=== PATIENT | female | born 1995 | race African-American/Black ===

== ENCOUNTER 2017-03-13 17:08 | Emergency (ER) | payer OTHER ==
[2017-03-13 17:38] LABS: Bilirubin Negative (Negative); Blood, Urine Negative (Negative); Glucose, Urine (Dipstick) Negative (Negative); Leukocyte Large (Negative); Nitrite Negative (Negative); Protein, Urine (Dipstick) Negative (Neg-Trace); Urobilinogen 0.2 mg/dL (0.2-1.0)
[2017-03-13 17:39] LABS: Clarity Hazy (Clear)
[2017-03-13 17:46] LABS: Bacteria/HPF 1+ HPF (None Seen); Hyaline Casts/LPF 0-3 HYALINE CAST LPF (0-3 Hyaline); Pathc Cast-AUWi Flag 0.13 (0-2.49); RBC/HPF 0-3 HPF (0-3); WBC/HPF 21-50 HPF (0-3)
[2017-03-13 17:59] LABS: #Eosinphils 0.1 thou/uL (0.0-0.7); #Monocytes 0.6 thou/uL (0.11-0.59); #Neutrophils 3.4 thou/uL (1.40-6.50); %Basophils 0.4 % (0.0-1.0); %Eosinophils 1.6 % (0.0-10.0); %Monocytes 10.4 % (0.0-10.0); %Neutrophils 54.6 % (42.0-75.0); Hemoglobin 12.7 g/dL (12.0-16.0); Mean Corpuscular HGB CONC 31.7 g/dL (32.0-36.0); Mean Corpuscular Hemoglobin 27.4 pg (27.0-31.0); Mean Corpuscular Volume 86.4 fl (81.0-99.0); Mean Platelet Volume 8.2 fL (7.4-10.4); Platelet Count 234 thou/uL (130-400); RBC Distribution Width 13.7 % (11.5-14.5); Red Blood Cell (RBC) Count 4.62 mill/uL (4.20-5.40); White Blood Cell (WBC) Count 6.2 thou/uL (4.8-10.8)
[2017-03-13 18:08] LABS: Crystals/HPF None Seen HPF (Negative)
--- NOTE | 2017-03-13 19:38 | ULT ---
PELVIC ULTRASOUND 03/13/17 HISTORY: Vaginal bleeding in patient with positive test. Patient also complains of abdominal crampin g. FINDINGS: Multiple transabdominal and endovaginal sonographic images of the pelvis are obtained. The uterus has a normal sonographic appearance and measures 10.5 cm x 4.8 cm x 5 cm. There is a fluid collection seen within the endometrial canal with a pole and yolk sac visualized. Cardiac dopp ler does demonstrate heart tones with a heart rate of 141 beats per minute. The crown-rum p length measures 0.97 cm consistent with gestational age by ultrasound of 7 weeks. The ovaries are visualized bilaterally demonstrating a normal sonographic appearance. The right ovary measures 2.9 cm x 2.1 cm x 2.7 cm with the left ovary measuring 1.7 cm x 1.4 cm x 2.8 cm. Doppler ev aluation of each ovary with spectral analysis and color flow evaluation demonstrates venous and arter ial flow. Although flow is difficult to elicit in the right ovary, there is suggestion of arterial fl ow. The fallopian tubes are not visualized bilaterally. No free fluid is seen in the cul-de-sac. IMPRESSION: Single intrauterine gestation with heart tones documented. Gestational age by measurement of th e crown-rump length is 7 weeks. POS: [facility]
[2017-03-14 22:33] LABS: Chlamydia by PCR Not Detected (NotDetected); GC by PCR Not Detected (NotDetected)
== END 2017-03-13 20:25 | disposition home or self-care (01) ==
LOC: ERS 17:08
DX: O20.0 Threatened abortion (principal); O23.41 Unspecified infection of urinary tract in pregnancy, first trimester; O99.341 Other mental disorders complicating pregnancy, first trimester; F31.9 Bipolar disorder, unspecified; F20.9 Schizophrenia, unspecified; F90.9 Attention-deficit hyperactivity disorder, unspecified type; Z3A.01 Less than 8 weeks gestation of pregnancy; Z86.711 Personal history of pulmonary embolism
CPT/HCPCS: 36415; 76856; 81003; 81015; 84702; 85025; 86850; 86900; 86901; 87480; 87491; 87510; 87591; 87660

== ENCOUNTER 2017-04-24 17:56 | Emergency (ER) | payer OTHER ==
[2017-04-24 18:42] LABS: Pregnancy Test - Urine (BHCG) POSITIVE (Negative); Pregu Control Background? CLEAR/WHITE (CLR/WHITE); Pregu Control Bar Appear? YES (CONTROL BAR)
[2017-04-24 18:43] LABS: Bilirubin Small (Negative); Blood, Urine Negative (Negative); Clarity CLOUDY (Clear); Glucose, Urine (Dipstick) Negative (Negative); Leukocyte Moderate (Negative); Nitrite Negative (Negative); Protein, Urine (Dipstick) 30 mg/dL (Neg-Trace)
[2017-04-24 18:48] LABS: Pathc Cast-AUWi Flag 2.57 (0-2.49); Yeast-AUWi Flag 40.7 (0-25.0)
[2017-04-24 19:00] LABS: Hyaline Casts/LPF 0-3 HYALINE CAST LPF (0-3 Hyaline)
[2017-04-24 19:01] LABS: Bacteria/HPF 1+ HPF (None Seen); RBC/HPF 0-3 HPF (0-3)
[2017-04-24 19:32] LABS: #Basophils 0.1 thou/uL (0.0-0.2); #Eosinphils 0.1 thou/uL (0.0-0.7); #Lymphocytes 0.7 thou/uL (1.20-3.40); #Monocytes 0.4 thou/uL (0.11-0.59); #Neutrophils 5.7 thou/uL (1.40-6.50); %Basophils 1.4 % (0.0-1.0); %Eosinophils 0.7 % (0.0-10.0); %Lymphocytes 9.9 % (21.0-51.0); %Monocytes 6.1 % (0.0-10.0); %Neutrophils 81.9 % (42.0-75.0); Hemoglobin 12.8 g/dL (12.0-16.0); Mean Corpuscular HGB CONC 33.1 g/dL (32.0-36.0); Mean Corpuscular Hemoglobin 28.9 pg (27.0-31.0); Mean Corpuscular Volume 87.4 fl (81.0-99.0); Mean Platelet Volume 8.2 fL (7.4-10.4); Platelet Count 174 thou/uL (130-400); RBC Distribution Width 13.7 % (11.5-14.5); Red Blood Cell (RBC) Count 4.41 mill/uL (4.20-5.40); White Blood Cell (WBC) Count 6.9 thou/uL (4.8-10.8)
[2017-04-24 19:47] LABS: ALT (SGPT) 9 U/L (8-55); AST (SGOT) 13 U/L (5-34); Albumin 3.6 g/dL (3.5-5.0); Alkaline Phosphatase 53 U/L (40-150); Anion Gap 12 mmol/L (10-20); BUN (Urea Nitrogen) 7 mg/dL (7.0-18.7); Bilirubin, Total 0.4 mg/dL (0.2-1.2); Calc. Creatinine Clearance 0 mL/min (70-130); Carbon Dioxide 20 mmol/L (22-29); Chloride 106 mmol/L (98-107); Estimated GFR-MDRD Greater than 90; Globulin 3.3 g/dL (2.4-3.5); Glucose 94 mg/dL (70-105); Protein, Total 6.9 g/dL (6.0-8.3); Sodium 134 mmol/L (136-145)
[2017-04-24] MEDS ORDERED: Ondansetron PF 4 MG/2 ML Vial ONE (20:06)
[2017-04-24 21:35] LABS: Bilirubin Small (Negative); Blood, Urine Negative (Negative); Clarity CLOUDY (Clear); Glucose, Urine (Dipstick) Negative (Negative); Leukocyte Small (Negative); Nitrite Negative (Negative); Protein, Urine (Dipstick) Trace mg/dL (Neg-Trace); Specific Gravity, Urine 1.033 (1.002-1.036)
[2017-04-24 21:38] LABS: Bacteria/HPF 1+ HPF (None Seen); Hyaline Casts/LPF 7-10 HYALINE CAST LPF (0-3 Hyaline); RBC/HPF 0-3 HPF (0-3); Squamous Epithelial 21-50 HPF (0-3); Yeast-AUWi Flag 79.1 (0-25.0)
[2017-04-24] MEDS ORDERED: Metoclopramide HCl 10 MG/2 ML VIAL ONE ×2 (22:29→22:50)
== END 2017-04-24 23:17 | disposition home or self-care (01) ==
LOC: ERS 17:56
DX: O21.9 Vomiting of pregnancy, unspecified (principal); O99.89 Other specified diseases and conditions complicating pregnancy, childbirth and the puerperium; R19.7 Diarrhea, unspecified; O99.341 Other mental disorders complicating pregnancy, first trimester; F31.9 Bipolar disorder, unspecified; F20.9 Schizophrenia, unspecified; F90.9 Attention-deficit hyperactivity disorder, unspecified type; Z3A.13 13 weeks gestation of pregnancy
CPT/HCPCS: 36415; 80053; 81003; 81015; 81025; 85025; 87086; 87804; 96361; 96374; 96375; J2405; J2765

== ENCOUNTER 2017-06-04 16:04 | Outpatient (CLI) | payer OTHER | END 2017-06-04 16:05 | disposition home or self-care (01) | LOC: BICULT 16:04 | PROVIDERS: ATTEND Obstetrics & Gynecology | DX: M79.661 Pain in right lower leg (principal) ==

== ENCOUNTER 2017-06-21 21:49 | Day surgery (SDC) | payer OTHER ==
[2017-06-21 22:35] VITALS: BP 120/59; TEMP 98.5; BMI 56.9
--- NOTE | 2017-06-22 01:52 | ER ---
DATE OF ENCOUNTER: 06/21/2017 PRIMARY OB: Dr. Dari Goyal. CHIEF COMPLAINT: Abdominal pain. HISTORY OF PRESENT ILLNESS: The patient is a 22-year-old G2, P1 female with an intrauterine pregnanc y at 21 weeks' gestation. Patient reports 5 days ago, patient fell on her abdomen and has been havin g abdominal pains since then. She reports the pain is associated with activity such as getting out o f the car, getting out of bed, climbing, walking. She denies labor pains or uterine contractions. T he patient also reports she has been having a foul vaginal smell that she has not been able to get ri d of. The patient denies any recent intercourse or antibiotics use. She does have a history of pulm onary embolism and is supposed to be on Lovenox twice daily, but has not been taking it. The patient denies any recent illness, fever, headache. The patient reports that she was worried. PAST MEDICAL HISTORY: Pulmonary embolism in 2014. PAST SURGICAL HISTORY: Previous x1. ALLERGIES: No known drug allergies. SOCIAL HISTORY: Denies drug, alcohol, or tobacco use. OB LABS: Unavailable. CURRENT MEDICATIONS: vitamins and Lovenox, which she admits she has not been taking. REVIEW OF SYSTEMS: Per HPI. PHYSICAL EXAMINATION: VITAL SIGNS: Blood pressure 118/55, heart rate of 85, respiratory rate of 20, satting 100% on room a ir, temperature 98.4. GENERAL: She appears to be in no acute distress. She is alert, oriented, cooperative, and pleasant to interact with. HEAD: Normocephalic, atraumatic. LUNGS: Clear to auscultation bilaterally. HEART: Regular rate and rhythm. ABDOMEN: Tender with deviation of the uterus bilaterally consistent with musculoskeletal pains and l igamentous pains. EXTREMITIES: Nontender, nonedematous. GENITOURINARY: VP3 was collected. Otherwise, exam has been deferred. Heart tones have been dopplered in the 140s. Tocometer did not demonstrate any contractions. VP3 is pending. ASSESSMENT AND PLAN: The patient is a 22-year-old G2, P1 female with an intrauterine at 21 weeks, who is presenting with just complaints of abdominal pains, which are consistent with ligament or musculoskeletal pains of . The patient has no signs of labor. 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 She has been encouraged to keep her next appointment with Dr. Goyal coming up next week.
== END 2017-06-21 23:35 | disposition home or self-care (01) ==
LOC: L&D/OP 21:49
PROVIDERS: ATTEND Student in an Organized Health Care Education/Training Program
DX: O99.89 Other specified diseases and conditions complicating pregnancy, childbirth and the puerperium (principal); R10.9 Unspecified abdominal pain; Z3A.21 21 weeks gestation of pregnancy; Z86.711 Personal history of pulmonary embolism; Z79.899 Other long term (current) drug therapy; W19.XXXA Unspecified fall, initial encounter
CPT/HCPCS: 87480; 87510; 87660; 99282

== ENCOUNTER 2017-07-27 19:05 | Emergency (ER) | payer OTHER ==
[2017-07-27] MEDS ORDERED: Acetaminophen 500 MG TAB ONE (19:24)
--- NOTE | 2017-07-27 19:54 | RAD ---
LEFT FOOT THREE VIEWS: 07/27/17 HISTORY: 22-year-old female with history of left foot pain. Unable to bend great toe. FINDINGS/IMPRESSION: No fracture, dislocation, or other significant acute osseous abnormality. Stable from prior exam, 05/04. POS: [facility]
== END 2017-07-27 19:56 | disposition home or self-care (01) ==
LOC: ERS 19:05
DX: O99.89 Other specified diseases and conditions complicating pregnancy, childbirth and the puerperium (principal); M25.572 Pain in left ankle and joints of left foot; O99.340 Other mental disorders complicating pregnancy, unspecified trimester; F20.9 Schizophrenia, unspecified; F31.9 Bipolar disorder, unspecified; F90.9 Attention-deficit hyperactivity disorder, unspecified type; Z86.711 Personal history of pulmonary embolism

== ENCOUNTER 2017-08-20 08:59 | Day surgery (SDC) | payer OTHER ==
[2017-08-20 09:32] VITALS: BMI 56.5
[2017-08-20 10:23] LABS: #Eosinphils 0.2 thou/uL (0.0-0.7); #Lymphocytes 1.4 thou/uL (1.20-3.40); #Monocytes 0.5 thou/uL (0.11-0.59); #Neutrophils 4.5 thou/uL (1.40-6.50); %Basophils 0.3 % (0.0-1.0); %Eosinophils 2.8 % (0.0-10.0); %Lymphocytes 21.1 % (21.0-51.0); %Monocytes 7.7 % (0.0-10.0); %Neutrophils 68.1 % (42.0-75.0); Hemoglobin 11.6 g/dL (12.0-16.0); Mean Corpuscular HGB CONC 33.3 g/dL (32.0-36.0); Mean Corpuscular Hemoglobin 29.3 pg (27.0-31.0); Mean Platelet Volume 8.5 fL (7.4-10.4); Platelet Count 201 thou/uL (130-400); RBC Distribution Width 12.5 % (11.5-14.5); Red Blood Cell (RBC) Count 3.97 mill/uL (4.20-5.40); White Blood Cell (WBC) Count 6.6 thou/uL (4.8-10.8)
[2017-08-20 10:26] LABS: Bilirubin Negative (Negative); Blood, Urine Negative (Negative); Clarity CLEAR (Clear); Glucose, Urine (Dipstick) Negative (Negative); Leukocyte Trace (Negative); Nitrite Negative (Negative); Protein, Urine (Dipstick) Negative (Neg-Trace); Specific Gravity, Urine 1.021 (1.002-1.036); pH, Urine 6.5 (5.0-9.0)
[2017-08-20 10:29] LABS: Bacteria/HPF None Seen HPF (None Seen); RBC/HPF 0-3 HPF (0-3); WBC/HPF 0-3 HPF (0-3)
[2017-08-20 10:38] LABS: Pathc Cast-AUWi Flag 3.05 (0-2.49)
[2017-08-20 10:45] LABS: Hyaline Casts/LPF 0-3 HYALINE CAST LPF (0-3 Hyaline)
[2017-08-20 10:55] LABS: FFN Internal QC Analyzer PASS (PASS); FFN Internal QC Cassette PASS (PASS); Fetal Fibronectin Negative (Negative)
--- NOTE | 2017-08-20 11:22 | ULT ---
OB ULTRASOUND: HISTORY: Pelvic cramping. COMPARISON: None. TECHNIQUE: Sagittal and transverse imaging of the gravid uterus is performed. FINDINGS: Single intrauterine gestation, vertex presentation. Posterior placenta. Limited evaluation for prev ia. Cervix cannot be adequately assessed due to shadowing. heart tones with a rate of 147 to 153 b.p.m. Amniotic fluid index is 10.9 cm. BIOMETRY: BPD 7.3 cm, 29 weeks 2 days Head circumference 27.10 cm, 29 weeks 4 days Abdominal circumference 24.54 cm, 28 weeks 6 days Femur length 5.69 cm, 29 weeks 6 days Average age by sonography is 29 weeks 3 days. Estimated delivery date by sonography is 11/02/17. Estimated weight is 1361 gm. IMPRESSION: 1. Single intrauterine gestation with heart tones. 2. Average age by sonography is 29 weeks 3 days. Estimated weight is 1361 gm. POS: [facility]
--- NOTE | 2017-08-20 13:58 | ER ---
DATE OF SERVICE: 08/20/2017 PRESENTING COMPLAINT: Lower abdominal pain and contractions at 35 weeks' gestation. HISTORY OF PRESENT ILLNESS: Ms. Alberto is a 22-year-old 2, para 1, who presents complaining o f contractions. The patient's EDC was 10/30 at 29 and 6 weeks[address] The patient sees Dr. Goyal at [facility]. She is on Lovenox for a history of DVT. Outside of , she has had a previous . 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 PAST MEDICAL HISTORY: DVT outside of . PAST SURGICAL HISTORY: . ALLERGIES: None. MEDICATIONS: vitamins and Lovenox. SOCIAL HISTORY: Denies tobacco, alcohol, IV drug use. FAMILY HISTORY/REVIEW OF SYSTEMS: Noncontributory. PHYSICAL EXAMINATION: GENERAL: Black female. VITAL SIGNS: Temperature 98.5, pulse 74, respirations 20, blood pressure 109/52. HEENT: Within normal limits. LUNGS: Clear to auscultation bilaterally. HEART: Regular rhythm. BREASTS: No masses bilaterally. ABDOMEN: Soft and nontender. Fundal height 30 cm. FHTs 130s. PELVIC: Vulva without lesions. Vagina without discharge. Cervix closed, long, high. EXTREMITIES: Without clubbing, cyanosis, or edema. RADIOLOGY: Ultrasound reveals cephalic presentation, 4 cm cervical length, YENIFER of 10.9 and EFW of 13 61 grams consistent with gestational age. LABORATORY STUDIES: CBC, UA, and fibronectin were all negative and within normal limits. Elec tronic monitoring, prolonged monitoring was carried out. No evidence of labor was note d. Category 1 heart rate tracing was noted. IMPRESSION: Discomforts of at 29 weeks' gestation. PLAN: Discharge home, keep scheduled followup with Dr. Goyal. Continue Lovenox and ER precautions .
== END 2017-08-20 11:56 | disposition home or self-care (01) ==
LOC: L&D/OP 08:59
PROVIDERS: ATTEND Student in an Organized Health Care Education/Training Program
DX: O47.03 False labor before 37 completed weeks of gestation, third trimester (principal); Z3A.29 29 weeks gestation of pregnancy
CPT/HCPCS: 36415; 51701; 76815; 81001; 82731; 85025; 99283

== ENCOUNTER 2017-09-03 15:40 | Outpatient (CLI) | payer OTHER ==
--- NOTE | 2017-09-03 17:12 | ULT ---
SONOGRAPHIC BIOPHYSICAL PROFILE EXAM: History: distress. FINDINGS: Good tone, breathing, and gross movements were demonstrated. Amniotic fluid index = 16.3. IMPRESSION: Sonographic biophysical profile exam is 10/03. POS: [facility]
== END 2017-09-03 15:41 | disposition home or self-care (01) ==
LOC: ULT 15:40
PROVIDERS: ATTEND Nurse Practitioner
DX: O36.8130 Decreased fetal movements, third trimester, not applicable or unspecified (principal)
CPT/HCPCS: 76819

== ENCOUNTER 2017-09-17 11:55 | Day surgery (SDC) | payer OTHER ==
--- NOTE | 2017-09-17 13:31 | PDOC.LDHP ---
Labor and Delivery H&P Chief complaint: loss of fluid, other Current gestational age (weeks): 34 Allergies/Adverse Reactions: Allergies Allergy/AdvReac Type Severity Reaction Status Date / Time No Known Allergies Allergy Verified 09/17/17 12:40
[2017-09-17 13:43] LABS: Bilirubin Negative (Negative); Blood, Urine Negative (Negative); Clarity CLEAR (Clear); Glucose, Urine (Dipstick) Negative (Negative); Leukocyte Small (Negative); Nitrite Negative (Negative); Protein, Urine (Dipstick) Negative (Neg-Trace); pH, Urine 6.5 (5.0-9.0)
[2017-09-17 13:44] LABS: Bacteria/HPF None Seen HPF (None Seen); Hyaline Casts/LPF 4-6 HYALINE CAST LPF (0-3 Hyaline); Pathc Cast-AUWi Flag 1.16 (0-2.49); RBC/HPF 0-3 HPF (0-3); WBC/HPF 0-3 HPF (0-3)
[2017-09-17 13:50] LABS: Amnisure Test No Membranes Rupture (No Rupture)
[2017-09-17 13:51] LABS: Amnisure Internal Control QC ACCEPTABLE (ACCEPTABLE)
--- NOTE | 2017-09-17 15:37 | ULT ---
LIMITED OBSETRICAL ULTRASOUND: INDICATION: History of obesity and unreliable heart tones. COMPARISON: Prior exam dated 09/03/17. FINDINGS: There is a single live intrauterine gestation in vertex presentation. Cardiac activity is documented at 124 b.p.m. YENIFER is noted at 8.8 cm. There is 8 out of 8 biophysical profile for tone, feta l breathing, movement, and amniotic fluid level. IMPRESSION: Biophysical profile of 8 out of 8. POS: [facility]
--- NOTE | 2017-09-17 19:44 | PRG ---
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 Dari Goyal at [facility]. CHIEF COMPLAINT: Pelvic pressure, urinary hesitancy, leakage of fluid and vaginal odor. HISTORY OF PRESENT ILLNESS: The patient is a 22-year-old female with an intrauterine at 33 weeks and 6 days with a past medical history significant for pulmonary embolism on anticoagulation, but is noncompliant. The patient reports that she has had 1 day history of pelvic pressure, urinary urgency. She called the doctor's office who instructed her to come here for evaluation. The patient denies any problems with urination until today. She reports that she has had bacterial vaginosis in this now twice with not responding to treatment. She reports that she has had a vaginal odor for much of her . Patient reports that she is having pelvic pressure/ pelvic pain that she notices mainly when she tries to lift her legs and to move to get out of bed and other activities. The patient denies fever or illness. She denies headache, chest pain, shortness of breath. She denies any vomiting. She reports that she has been having loose stools now for nearly [address] Goyal has been unaware of. The patient admits that she does not eat well at home, which I understood as less than nutritious foods. The patient denies any new rashes. She denies vaginal bleeding. PAST MEDICAL HISTORY: 1. She has a history of pulmonary embolism with unknown etiology from the summer of 2015. 2. Bipolar disorder. 3. History of chlamydia. ALLERGIES: No known drug allergies. PAST SURGICAL HISTORY: She has had 1 prior . ALLERGIES: No known drug allergies. MEDICATIONS: vitamins, Lovenox 40 mg twice a day. SOCIAL HISTORY: Denies drug, alcohol, and tobacco use. OBSTETRICS LABS: Blood type is B positive, antibody screen is negative. She is rubella immune. RPR is nonreactive. Hepatitis B surface antigen is nonreactive. REVIEW OF SYSTEMS: Per HPI. PHYSICAL EXAMINATION: VITAL SIGNS: Blood pressure 120/54, heart rate of 98, respiratory rate 20, satting 100% on room air, temperature 98.5. GENERAL: She appears to be in no acute distress. She is alert and oriented, cooperative and pleasant to interact with. HEENT: Normocephalic, atraumatic. LUNGS: Clear to auscultation bilaterally. HEART: Regular rate and rhythm. ABDOMEN: Soft and gravid and obese. heart tracing performed and was difficulty tracing appeared to have baseline in the 130s though could not get a consistent tracing. BPP was performed and found to be 8/8. AmniSure was collected TETRYL BLENDER OPERATOR-3 was collected and a cath UA was collected. FINDINGS: UA was negative for protein, for ketones, for nitrites, negative for white blood cells, negative for bacteria. She had small leukocyte esterase, but 4-6 squamous cells. AmniSure test was negative for rupture of membranes and TETRYL BLENDER OPERATOR-3 was positive for bacterial vaginosis or Gardnerella negative for Trichomonas and yeast. ASSESSMENT AND PLAN: The patient is a 22-year-old female with an intrauterine at 33 weeks and 6 days who has pelvic pains consistent with round ligament pain. She does not have a urinary tract infection; however , she does have bacterial vaginosis once again. The patient has been treated twice before with recurrence. I have given the patient a prescription of metronidazole 500 mg to be taken 3 times a day for the next week. Following her prescription, she has been given instructions to take an [id number] probiotic designed specifically for reintroducing healthy vaginal chantelle, which she has agreed to take. She has been given the name of the medication or of the probiotic and it is showed in the picture the bottle and told where she can pick it up at [facility]. The patient is being discharged to home when the patient noted that her heart tones were in the 120s and that her baby is normally in the 150s. We attempted to explain to her that the baby looks reassuring, although her heart rate baseline is different than what she has seen in the past. We have a reassuring BPP of 8/8 and heart tones are within a normal range. The patient has an appointment for followup with Dr. Goyal on Sunday. After leaving the room, the patient had an exchange with Denia, her nurse. Denia contacted myself and reported the patient is using profanity and refusing to believe her baby is okay. I contacted Dr. Goyal via text to let her know that she needs to come and speak with her patient to alleviate any concerns that the patient may have. I did return back to the room to try to understand what the patient' s concerns are. The patient again expressed a concern that the heart tones are in the 120s and that her baby is normal in the 150s and that there is something wrong. I attempted to explain to her why I believe that the baby is healthy, that there was no acute problems at this time with the findings of 10/03 BPP. Pt stated that the bpp was done because there were problems with the baby. I stated that the bpp was not ordered by myself because I was worried about the baby and reiterated that we were having trouble monitoring the baby. The patient again expressed distressed and began using profanity toward myself. I did share with her that I have contacted Dr. Goyal who can maybe better explain things and she said she does not trust Dr. Goyal either because "Dr. Goyal lies to me." The patient asked why we did BPP, I reiterated again that we did a BPP because we had difficulty tracing the baby on the monitor. She asked why they had difficulty tracing the baby on the monitor and I explained to her that she was a little overweight and had difficulty tracing the baby and so that is why we did a BPP to better monitor. She became more irate at that point using more profanity and worse profanity. I shared with her at this it was time for her to go. we have taken care of her and her baby and that the nursing staff nor I deserve to be treated with profanity and with anger the way she is doing so. I have explained to the patient that we have done nothing to mistreat her, but we have tried to take care of her and to explain to her what is happening. The patient refused to accept that and continued to use expletives. At that point, I told Denia that we need to contact security and have the patient escorted out of the hospital. The patient then at that point said she will go and I left the room. MONA
== END 2017-09-17 15:40 | disposition home or self-care (01) ==
LOC: L&D/OP 11:55
PROVIDERS: ATTEND Student in an Organized Health Care Education/Training Program
DX: O23.593 Infection of other part of genital tract in pregnancy, third trimester (principal); N76.0 Acute vaginitis; B96.89 Other specified bacterial agents as the cause of diseases classified elsewhere; O99.89 Other specified diseases and conditions complicating pregnancy, childbirth and the puerperium; R10.2 Pelvic and perineal pain; Z3A.33 33 weeks gestation of pregnancy
CPT/HCPCS: 36415; 51701; 76819; 81001; 84112; 87480; 87510; 87660; 99283

== ENCOUNTER 2017-10-17 10:18 | Day surgery (SDC) | payer OTHER ==
[2017-10-17 11:10] VITALS: BMI 57.5
--- NOTE | 2017-10-17 11:14 | PDOC.LDHP ---
Labor and Delivery H&P Chief complaint: decreased movement HPI: 22 y/o at 38w1d, patient of Dr. Goyal at , presents with decreased FM since last night. Has had some constant left sided abdominal cramping today only after she urinates. Denies VB, LOF, ctx, or other concerns. ROS neg for HEENT, cv, pulm, gi, gu, neuro, psych, skin, musculoskeletal, or constitutional symptoms other than mentioned above. OB History Details: 1 prior term LTCS for distress. Past Medical History: Hx of PE Previous surgical history: low tranverse CS Allergies/Adverse Reactions: Allergies Allergy/AdvReac Type Severity Reaction Status Date / Time No Known Allergies Allergy Verified 09/17/17 12:40 Social history: none - Physical Exam Vital signs reviewed and normal: yes General: NAD, resting Lungs: nonlabored breathing Abdomen: gravid Extremeties: no edema FHT: category 1 (140s, mod variability, + accels, no decels) [place] contractions every: none - Vaginal Exam cm dilated: 0 Effacement: 0% Station: -3 - OB Labs Blood type: B RH: positive - Assessment 22 y/o at 38w1d with reactive NST and no e/o active labor. - Plan -: D/c home with precautions. Advised to keep all appointments and return for scheduled c/s next Sunday.
== END 2017-10-17 11:20 | disposition home or self-care (01) ==
LOC: L&D/OP 10:18
PROVIDERS: ATTEND Obstetrics & Gynecology
DX: O36.8130 Decreased fetal movements, third trimester, not applicable or unspecified (principal); Z3A.38 38 weeks gestation of pregnancy
CPT/HCPCS: 99283

== ENCOUNTER 2017-10-19 11:36 | Outpatient (CLI) | payer OTHER | END 2017-10-19 11:37 | disposition home or self-care (01) | LOC: BICULT 11:36 | PROVIDERS: ATTEND Nurse Practitioner | DX: O36.8130 Decreased fetal movements, third trimester, not applicable or unspecified (principal); N32.0 Bladder-neck obstruction | CPT/HCPCS: 76819 ==

== ENCOUNTER → 2017-10-25 14:00 | Inpatient (IN) | payer MEDICAID, OTHER ==
[2017-10-23 05:44] VITALS: BMI 55.5
[2017-10-23 06:18] LABS: Hemoglobin 11.3 g/dL (12.0-16.0); Mean Corpuscular HGB CONC 33.6 g/dL (32.0-36.0); Mean Corpuscular Hemoglobin 28.5 pg (27.0-31.0); Mean Corpuscular Volume 84.8 fL (78.0-98.0); Mean Platelet Volume 8.5 fL (7.4-10.4); Platelet Count 212 thou/uL (130-400); RBC Distribution Width 12.8 % (11.5-14.5); Red Blood Cell (RBC) Count 3.96 mill/uL (4.20-5.40)
[2017-10-23 06:50] LABS: Syphilis Antibody Nonreactive (Nonreactive); Syphilis Antibody Index 0.05 S/CO (<1.00 Non-Reactive)
[2017-10-23 06:51] LABS: Hep B Surf Ag Non-Reactive S/CO (NonReactive)
--- NOTE | 2017-10-23 07:32 | PDOC.LDHP ---
Labor and Delivery H&P Chief complaint: scheduled section HPI: 22yo at 39w0d by LMP for RCS. No complaints, has not taken lovenox in last 2 weeks Current gestational age (weeks): 39 Due date: 10/30/17 Dating criteria: last menstrual period Grav: 2 Para: 1 Current complications: none Abnormal US findings: No (dilated bladder on sono 10/19, resolved on BS sono today) Past Medical History: h/o PE after 2014, neg thrombophilia w/u, supposed to be on lifelong anticoagulation Current medications: pre-lety vitamins, other (lovenox 60 bid) Previous surgical history: low tranverse CS Allergies/Adverse Reactions: Allergies Allergy/AdvReac Type Severity Reaction Status Date / Time No Known Allergies Allergy Verified 09/17/17 12:40 Social history: none - Physical Exam Vital signs reviewed and normal: yes General: NAD Heart: RRR Lungs: CTAB Abdomen: gravid Extremeties: no edema FHT: category 1 [place] contractions every: 5min - OB Labs RH: positive Antibody Screen: negative HIV: negative RPR: negative HEPSAg: negative 1 hour GCT: negative GBS: negative Urine drug screen: negative Rubella: immune - Assessment L&D Assessment: scheduled repeat section - Plan Plan: admit to L&D, to OR for section, informed consent obtained, anesthesia consult for pain management
[2017-10-23 08:45] LABS: Actual Bicarbonate (HCO3a) 24.9 mEq/L (22-28); Base Excess (BEa) -3.6 mEq/L (-2.0 to +3.0)
[2017-10-23] MEDS: Lactated Ringer's 1,000 ML IV SCH ×2 (09:20→14:01)
--- NOTE | 2017-10-23 13:07 | PDOC.OPDEL ---
OB Operative/Delivery Note Delivery Dr/Surgeon: Jay Jay Assist: Barrera PGY2 Pre-Delivery Diagnosis: scheduled section Procedure/Post Delivery Dx: repeat low transverse CS Weeks gestation: 39 Anesthesia: other (GETA) - Findings A Sex: female - Additional Findings/Plan Placenta delivered: spontaneous findings: low transverse hysterotomy without extension, normal uterus, normal tubes, normal ovaries Estimated blood loss: normal qbl pending Compilations/Other Findings: thick chronic meconium staining, placenta sent for path. Post delivery plan: routine recovery
--- NOTE | 2017-10-23 14:13 | OP ---
DATE OF OPERATION: 10/23/2017 PREOPERATIVE DIAGNOSES: 1. Intrauterine at 39 weeks 0 days. 2. Prior , declines trial of labor. 3. History of pulmonary embolism. 4. Morbid obesity. POSTOPERATIVE DIAGNOSES: 1. Intrauterine at 39 weeks 0 days. 2. Prior . 3. Declines trial of labor. 4. History of pulmonary embolism, morbid obesity. PROCEDURE: Repeat low transverse section via Pfannenstiel skin incision. ANESTHESIA: General endotracheal. ATTENDING SURGEON: Dari Goyal M.D. PRINCIPAL LIBRARIAN: Dr. Rust, PGY-2. ESTIMATED BLOOD LOSS: Normal. Quantitative blood loss is pending. COMPLICATIONS: None. DRAINS: Marte catheter. FINDINGS: Female infant, cephalic presentation, thick meconium, chronically stain appearing fluid an d placental membranes as well as uterine cavity. Apgars and weight are currently pending, pH was 7.2 3, pCO2 60.5, base excess negative 3.6. Hysterotomy without extension. Normal uterus, ovaries and t ubes bilaterally. PATHOLOGY: Placenta. OPERATIVE TECHNIQUE: The patient was taken to the operating room where spinal anesthesia was unsucce ssful. Therefore, general anesthesia was administered. The patient was prepped and draped in a ster ile fashion. Prior to administering general anesthesia once the patient was prepped and draped the a nesthetic was administered and skin incision was made with a knife and carried down to the underlying subcutaneous tissue with the knife. The fascia was nicked in the midline with the knife and carried laterally with the Nix scissors. The superior aspect of the fascia was tented with 2 Kochers and d issected off the rectus with the Nix scissors. There was omentum adherent to the rectus muscles and the anterior abdominal wall that was taken down sharply and hemostasis was achieved with the Bovie. The inferior aspect of the fascia was tented with 2 Kochers and dissected off the rectus down to the pubic symphysis. The peritoneum had previously been entered into and was manually retracted at this time, the Royer O retractor was placed and the vesicouterine peritoneum was incised with the Morgan baliza and the bladder flap was taken down below the level of the hysterotomy. The lower uterine segm ent was very thin and hysterotomy was made with a single pass of the knife and the meconium fluid pre sented. The infant's head was brought to the hysterotomy and delivered with fundal pressure. The in ben's cord was clamped and handed to awaiting emely team. Cord gas and cord blood was obtained . The placenta was allowed to spontaneously deliver. The uterus was exteriorized, cleared of all cl ots and debris. The uterus was noted to be atonic. The hysterotomy was clamped off with ring forcep s and Pitocin was infusing. Methergine was called for. The uterus was placed back into the abdomen and again lapped out and the hysterotomy was repaired with a #1 Monocryl in a running locking fashion . Methergine was given tone was improving. Bleeding was not excessive. A second imbricating layer was placed for added strength and since the patient had a very thin lower uterine segment. Hemostasi s was achieved. Irrigation of the pelvis was performed and again hysterotomy was noted to be hemosta tic. The Royer O retractor was removed out of the abdomen. The rectus muscles were examined and no cristiana to be hemostatic. The peritoneum was then reapproximated with a 2-0 Vicryl in a running fashion. The fascia was reapproximated with a #1 PDS x2 sutures with excellent reapproximation. The subcuta neous tissue was irrigated and cauterized of any bleeders and reapproximated with 2 layers of 2-0 janina in gut in a running fashion. The skin was closed with 4-0 Monocryl in a subcuticular fashion. Gallaway sampson was applied as well as a pressure dressing. The patient tolerated the procedure well. Sponge a nd needle counts were correct x2. The patient was taken to recovery in stable condition. The patien t received Ancef 3 grams prior to the procedure.
[2017-10-24] MEDS: Ferrous Sulfate 325 MG TAB PO SCH ×3 (01:44→21:30)
[2017-10-24] MEDS: Lactated Ringer's 1,000 ML IV SCH ×3 (01:44→14:00)
[2017-10-24 06:30] LABS: Hemoglobin 9.8 g/dL (12.0-16.0); Mean Corpuscular HGB CONC 33.5 g/dL (32.0-36.0); Mean Corpuscular Hemoglobin 28.4 pg (27.0-31.0); Mean Corpuscular Volume 84.7 fL (78.0-98.0); Mean Platelet Volume 8.8 fL (7.4-10.4); Platelet Count 172 thou/uL (130-400); RBC Distribution Width 12.6 % (11.5-14.5); Red Blood Cell (RBC) Count 3.44 mill/uL (4.20-5.40); White Blood Cell (WBC) Count 13.9 thou/uL (4.8-10.8)
[2017-10-24] MEDS: Prenatal Vitamin 1 TAB PO SCH (09:11)
[2017-10-24] MEDS: Enoxaparin Sodium 60 MG/0.6 ML SYRINGE SC SCH ×2 (09:12→21:30)
--- NOTE | 2017-10-24 10:08 | PDOC.PP ---
Post Progress Note Post Day #: 1 PO intake tolerated: yes Flatus: yes Ambulation: yes Vital Signs (12 hours) Temp Pulse Resp BP 10/24/17 08:00 98.7 F 60 20 10/24/17 07:51 98.7 F 60 20 120/69 10/24/17 04:00 97.5 F L 68 18 127/73 10/24/17 00:00 98.8 F 65 20 121/62 Weight Weight 275 lb - Physical Examination General: NAD Cardiovascular: RRR Respiratory: non-labored breathing Abdominal: no distention, appropriately TTP Fundus firm & at: umb Skin: CS incision dry & intact Neurological: no gross focal deficits Psychiatric: normal affect Result Diagrams: 10/24/17 06:10 Additional Labs: Post Labs Blood Type B POSITIVE 10/23/17 06:06 Hep Bs Antigen Non-Reactive S/CO (NonReactive) 10/23/17 06:06 (1) Term Code(s): Z34.80 - ENCOUNTER FOR SUPRVSN OF NORMAL , UNSP TRIMESTER Status: Acute (2) History of pulmonary artery thrombosis Code(s): Z86.711 - PERSONAL HISTORY OF PULMONARY EMBOLISM Status: Acute - Assessment/Plan POD1 s/p RCS at 39w VSSAF Hgb 11.3-->9.8, appropriate for surgical blood loss, mild anemia, no s/sx, will cont PNV on DC Hx PE- restart ppx lovenox 60 bid due to morbid obesity Routine postop advances Rh pos RImm Cont Postop care.
[2017-10-24] MEDS: Ibuprofen 800 MG TAB PO SCH (21:30)
[2017-10-24] MEDS: HYDROcodone/Acetaminophen 5/325 mg Tablet PO PRN (21:34)
[2017-10-25] MEDS: Lactated Ringer's 1,000 ML IV SCH ×2 (03:06→06:20)
[2017-10-25] MEDS: HYDROcodone/Acetaminophen 5/325 mg Tablet PO PRN ×2 (06:23→11:10)
[2017-10-25] MEDS: Ibuprofen 800 MG TAB PO SCH ×2 (06:24→13:51)
[2017-10-25 07:35] VITALS: BP 125/81; TEMP 98.2
[2017-10-25] MEDS: Prenatal Vitamin 1 TAB PO SCH (08:41)
[2017-10-25] MEDS: Enoxaparin Sodium 60 MG/0.6 ML SYRINGE SC SCH (08:41)
[2017-10-25] MEDS: Ferrous Sulfate 325 MG TAB PO SCH (08:41)
--- NOTE | 2017-10-25 10:55 | PDOC.PP ---
Post Progress Note Vital Signs (12 hours) Temp Pulse Resp BP 10/25/17 08:00 98.2 F 87 20 10/25/17 07:34 98.2 F 87 20 125/81 10/25/17 04:30 98.7 F 86 20 120/86 10/25/17 00:00 98.4 F 79 20 119/49 L Weight Weight 275 lb Result Diagrams: 10/24/17 06:10 Additional Labs: Post Labs Blood Type B POSITIVE 10/23/17 06:06 Hep Bs Antigen Non-Reactive S/CO (NonReactive) 10/23/17 06:06 (1) Term Code(s): Z34.80 - ENCOUNTER FOR SUPRVSN OF NORMAL , UNSP TRIMESTER Status: Acute (2) History of pulmonary artery thrombosis Code(s): Z86.711 - PERSONAL HISTORY OF PULMONARY EMBOLISM Status: Acute
[~2017-10-25 14:00] MED LIST: Acetaminophen 325 MG TAB PO PRN; Acetaminophen 500 MG TAB PO SCH; Adacel (T-DAP) 0.5 ML VIAL IM ONE; Bicitra 30 ML UDCUP PO SCH; Bisacodyl 10 MG SUPP PR PRN; Bupivacaine 0.75% W/DEXTROSE 8.25% 2 ML AMP ONE; CEFAZOLIN/Water 2 GM/20 ML SYRINGE SLOW IVP SCH; Communication Order-Pharmacy FS SCH; Dexamethasone 4 mg/ml Vial ONE; Fentanyl 100 MCG/2 ML VIAL ONE; Gentamicin Sulfate 125 MG in Sodium Chloride 0.9% 100 ML IVPB SCH; Gentamicin Sulfate 80 MG in Premix Bag 1 BAG IVPB SCH; HYDROcodone/Acetaminophen 5/325 mg Tablet PO PRN; HYDROmorphone 2 MG/ML VIAL SLOW IVP PRN; Ibuprofen 800 MG TAB PO PRN; Ibuprofen 800 MG TAB PO SCH; Ketorolac Tromethamine 30 MG/ML VIAL IVP SCH; Ketorolac Tromethamine 30 MG/ML VIAL ONE; LR 500 ML/Oxytocin 10 units 500 ML IVPB SCH; Lidocaine 1% PF 5 ML VIAL ONE; Lidocaine 2% PF Inj 2 ML VIAL ONE; Meperidine HCl/PF 25 MG/ML VIAL SLOW IVP PRN; Methylergonovine 0.2 MG/ML VIAL ONE; Morphine PF 1 MG/ML SYR ONE; Naloxone HCl 0.4 mg/ml Vial IV PRN; Ondansetron HCl/PF 4 MG/2 ML Vial IVP PRN; Ondansetron HCl/PF 4 MG/2 ML Vial ONE; Oxytocin 10 UNITS/ML VIAL ONE; PROPOFOL 20 ML ONE; Promethazine HCl 25 MG/ML VIAL IM PRN; Succinylcholine Chloride 20 MG/ML 10 ml SYRINGE FS ONE; Zolpidem Tartrate 5 MG TAB PO PRN; diphenhydrAMINE 25 MG CAP PO PRN; diphenhydrAMINE 50 MG/ML VIAL IM PRN; diphenhydrAMINE 50 MG/ML VIAL IVP PRN; fentaNYL Citrate/PF 2,000 MCG in Sodium Chloride 0.9% 60 ML IV PRN
== END | disposition home or self-care (01) | DRG 766 ==
LOC: EDSTATUS 02-07 13:36 → L&D 10-23 05:33 → 3SW 10-23 13:20
PROVIDERS: ADMIT Student in an Organized Health Care Education/Training Program; ATTEND Student in an Organized Health Care Education/Training Program
PROC: 10D00Z1 Extraction of Products of Conception, Low, Open Approach (ICD-10-PCS; principal; 2017-10-23)
DX: O34.211 Maternal care for low transverse scar from previous cesarean delivery (principal); Z37.0 Single live birth; Z3A.39 39 weeks gestation of pregnancy; Z86.711 Personal history of pulmonary embolism
CPT/HCPCS: 36415; 51702; 82805; 85027; 86780; 86850; 86900; 86901; 87340; 88307; J1100; J1580; J1650; J1885; J2001; J2210; J2274; J2405; J2590; J2704; J3010; J3490; J7050

== ENCOUNTER 2017-12-10 20:31 | Emergency (ER) | payer OTHER ==
[2017-12-10 21:14] LABS: #Basophils 0.1 thou/uL (0.0-0.2); #Eosinphils 0.2 thou/uL (0.0-0.7); #Lymphocytes 2.1 thou/uL (1.20-3.40); #Monocytes 0.5 thou/uL (0.11-0.59); #Neutrophils 4.4 thou/uL (1.40-6.50); %Basophils 1.1 % (0.0-1.0); %Eosinophils 2.5 % (0.0-10.0); %Lymphocytes 28.8 % (21.0-51.0); %Neutrophils 60.7 % (42.0-75.0); Hemoglobin 11.2 g/dL (12.0-16.0); Mean Corpuscular HGB CONC 31.7 g/dL (32.0-36.0); Mean Corpuscular Hemoglobin 26.9 pg (27.0-31.0); Mean Corpuscular Volume 84.8 fL (78.0-98.0); Mean Platelet Volume 8.9 fL (7.4-10.4); Platelet Count 258 thou/uL (130-400); RBC Distribution Width 12.8 % (11.5-14.5); Red Blood Cell (RBC) Count 4.18 mill/uL (4.20-5.40); White Blood Cell (WBC) Count 7.2 thou/uL (4.8-10.8)
[2017-12-10 21:34] LABS: ALT (SGPT) 12 U/L (8-55); AST (SGOT) 16 U/L (5-34); Albumin 3.6 g/dL (3.5-5.0); Alkaline Phosphatase 62 U/L (40-150); Anion Gap 13 mmol/L (10-20); BUN (Urea Nitrogen) 10 mg/dL (7.0-18.7); Bilirubin, Total 0.3 mg/dL (0.2-1.2); Calc. Creatinine Clearance 0 mL/min (70-130); Calcium 8.6 mg/dL (7.8-10.44); Carbon Dioxide 21 mmol/L (22-29); Chloride 108 mmol/L (98-107); Estimated GFR-MDRD Greater than 90; Globulin 2.9 g/dL (2.4-3.5); Glucose 101 mg/dL (70-105); Lipase 25 U/L (8-78); Protein, Total 6.5 g/dL (6.0-8.3); Sodium 138 mmol/L (136-145)
--- NOTE | 2017-12-10 22:00 | ULT ---
SONOGRAM RIGHT UPPER QUADRANT: HISTORY: Right upper quadrant pain. FINDINGS: Multiple shadowing stones are present within the dependent portion of the gallbladder lumen. There i s no gallbladder wall thickening or pericholecystic fluid. The common duct is 0.3 cm. The liver is unremarkable, without focal mass or intrahepatic biliary dilatation. No free fluid. IMPRESSION: 1. Cholelithiasis. 2. No evidence of acute biliary obstruction. POS: [facility]
== END 2017-12-10 22:03 | disposition home or self-care (01) ==
LOC: ERS 20:31
DX: K80.20 Calculus of gallbladder without cholecystitis without obstruction (principal); Z86.711 Personal history of pulmonary embolism; F31.9 Bipolar disorder, unspecified; F20.9 Schizophrenia, unspecified; F90.9 Attention-deficit hyperactivity disorder, unspecified type
CPT/HCPCS: 36415; 76705; 80053; 83690; 85025

== ENCOUNTER 2018-06-25 19:57 | Emergency (ER) | payer OTHER | END 2018-06-25 20:25 | disposition left against medical advice (07) | LOC: ERS 19:57 | DX: Z53.21 Procedure and treatment not carried out due to patient leaving prior to being seen by health care provider (principal) ==

== ENCOUNTER 2018-11-21 23:38 | Emergency (ER) | payer OTHER ==
[2018-11-22 00:32] LABS: #Basophils 0.1 thou/uL (0.0-0.2); #Eosinphils 0.1 thou/uL (0.0-0.7); #Lymphocytes 3.3 thou/uL (1.20-3.40); #Monocytes 0.7 thou/uL (0.11-0.59); #Neutrophils 5.7 thou/uL (1.40-6.50); %Basophils 0.5 % (0.0-1.0); %Eosinophils 1.3 % (0.0-10.0); %Lymphocytes 33.6 % (21.0-51.0); %Monocytes 6.8 % (0.0-10.0); %Neutrophils 57.8 % (42.0-75.0); Hemoglobin 11.5 g/dL (12.0-16.0); Mean Corpuscular HGB CONC 32.2 g/dL (32.0-36.0); Mean Corpuscular Hemoglobin 26.1 pg (27.0-31.0); Mean Platelet Volume 8.4 fL (7.4-10.4); Platelet Count 295 thou/uL (130-400); RBC Distribution Width 13.6 % (11.5-14.5); Red Blood Cell (RBC) Count 4.42 mill/uL (4.20-5.40); White Blood Cell (WBC) Count 9.8 thou/uL (4.8-10.8)
[2018-11-22 00:38] LABS: BHCG - Serum Negative (NEGATIVE); Pregs Control Background? CLEAR/WHITE (CLR/WHITE); Pregs Control Bar Appear? YES (CONTROL BAR)
[2018-11-22 00:53] LABS: ALT (SGPT) 12 U/L (8-55); AST (SGOT) 14 U/L (5-34); Alkaline Phosphatase 64 U/L (40-110); Anion Gap 11 mmol/L (10-20); BUN (Urea Nitrogen) 12 mg/dL (7.0-18.7); Bilirubin, Total 0.2 mg/dL (0.2-1.2); Calc. Creatinine Clearance 0 mL/min (70-130); Calcium 9.4 mg/dL (7.8-10.44); Carbon Dioxide 23 mmol/L (22-29); Chloride 106 mmol/L (98-107); Estimated GFR-MDRD Greater than 90; Globulin 3.6 g/dL (2.4-3.5); Glucose 93 mg/dL (70-105); Lipase 35 U/L (8-78); Protein, Total 7.6 g/dL (6.0-8.3); Sodium 136 mmol/L (136-145)
[2018-11-22] MEDS ORDERED: Ketorolac Tromethamine 60 MG/2 ML VIAL ONE (00:55)
--- NOTE | 2018-11-22 06:28 | RAD ---
CHEST 1 VIEW: Date: 11/21/18 HISTORY: Chest pain x4 days. COMPARISON: 06/30/14. FINDINGS: Normal cardiac silhouette. Pulmonary vessels and hilum are normal. Costophrenic angles are clear. Snow g volumes are diminished, likely due to a poor inspiratory effort. No masses or consolidation. No pne umothorax or osseous abnormalities. IMPRESSION: 1. Diminished lung volumes, likely due to poor inspiratory effort. 2. No acute cardiopulmonary process. POS: ALEAH
== END 2018-11-22 01:41 | disposition home or self-care (01) ==
LOC: ERS 23:38
DX: R07.9 Chest pain, unspecified (principal); E66.9 Obesity, unspecified
CPT/HCPCS: 36415; 71045; 80053; 83690; 84484; 84703; 85025; 93005; 96372; J1885

== ENCOUNTER 2019-01-07 16:47 | Emergency (ER) | payer OTHER ==
[~2019-01-07 16:47] MED LIST changes: -Acetaminophen 325 MG TAB PO PRN; -Acetaminophen 500 MG TAB PO SCH; -Adacel (T-DAP) 0.5 ML VIAL IM ONE; -Bicitra 30 ML UDCUP PO SCH; -Bisacodyl 10 MG SUPP PR PRN; -Bupivacaine 0.75% W/DEXTROSE 8.25% 2 ML AMP ONE; -CEFAZOLIN/Water 2 GM/20 ML SYRINGE SLOW IVP SCH; -Communication Order-Pharmacy FS SCH; -Dexamethasone 4 mg/ml Vial ONE; -Fentanyl 100 MCG/2 ML VIAL ONE; -Gentamicin Sulfate 125 MG in Sodium Chloride 0.9% 100 ML IVPB SCH; -Gentamicin Sulfate 80 MG in Premix Bag 1 BAG IVPB SCH; -HYDROcodone/Acetaminophen 5/325 mg Tablet PO PRN; -HYDROmorphone 2 MG/ML VIAL SLOW IVP PRN; -Ibuprofen 800 MG TAB PO PRN; -Ibuprofen 800 MG TAB PO SCH; +Iopamidol-370 76% 500 ML 1 ML ONE; -Ketorolac Tromethamine 30 MG/ML VIAL IVP SCH; -Ketorolac Tromethamine 30 MG/ML VIAL ONE; -LR 500 ML/Oxytocin 10 units 500 ML IVPB SCH; -Lidocaine 1% PF 5 ML VIAL ONE; -Lidocaine 2% PF Inj 2 ML VIAL ONE; -Meperidine HCl/PF 25 MG/ML VIAL SLOW IVP PRN; -Methylergonovine 0.2 MG/ML VIAL ONE; -Morphine PF 1 MG/ML SYR ONE; -Naloxone HCl 0.4 mg/ml Vial IV PRN; -Ondansetron HCl/PF 4 MG/2 ML Vial IVP PRN; -Ondansetron HCl/PF 4 MG/2 ML Vial ONE; -Oxytocin 10 UNITS/ML VIAL ONE; -PROPOFOL 20 ML ONE; -Promethazine HCl 25 MG/ML VIAL IM PRN; -Succinylcholine Chloride 20 MG/ML 10 ml SYRINGE FS ONE; -Zolpidem Tartrate 5 MG TAB PO PRN; -diphenhydrAMINE 25 MG CAP PO PRN; -diphenhydrAMINE 50 MG/ML VIAL IM PRN; -diphenhydrAMINE 50 MG/ML VIAL IVP PRN; -fentaNYL Citrate/PF 2,000 MCG in Sodium Chloride 0.9% 60 ML IV PRN
[2019-01-07 17:25] LABS: Bilirubin Negative (Negative); Blood, Urine 2+ (Negative); Clarity Turbid (Clear); Glucose, Urine (Dipstick) Normal (Negative); Leukocyte 250 Leu/uL (Negative); Nitrite Negative (Negative); Protein, Urine (Dipstick) 20 mg/dL (Neg-Trace); Squamous Epithelial 21-50 HPF (0-3); Urobilinogen Normal mg/dL (Less than 2)
[2019-01-07 17:26] LABS: Bacteria/HPF 1+ HPF (None Seen)
[2019-01-07 17:52] LABS: #Basophils 0.1 thou/uL (0.0-0.2); #Eosinphils 0.3 thou/uL (0.0-0.7); #Lymphocytes 2.8 thou/uL (1.20-3.40); #Monocytes 0.5 thou/uL (0.11-0.59); #Neutrophils 3.5 thou/uL (1.40-6.50); %Basophils 0.7 % (0.0-1.0); %Eosinophils 4.7 % (0.0-10.0); %Lymphocytes 39.2 % (21.0-51.0); %Monocytes 6.7 % (0.0-10.0); %Neutrophils 48.8 % (42.0-75.0); Hemoglobin 12.7 g/dL (12.0-16.0); Mean Corpuscular HGB CONC 31.8 g/dL (32.0-36.0); Mean Corpuscular Hemoglobin 25.9 pg (27.0-31.0); Mean Corpuscular Volume 81.5 fL (78.0-98.0); Mean Platelet Volume 8.2 fL (7.4-10.4); Platelet Count 304 thou/uL (130-400); RBC Distribution Width 14.5 % (11.5-14.5); White Blood Cell (WBC) Count 7.1 thou/uL (4.8-10.8)
--- NOTE | 2019-01-07 17:53 | RAD ---
Chest one view HISTORY: Hematemesis. Chest pain. COMPARISON: 11/21/2018. FINDINGS: Cardiac silhouette is magnified by projection. Pulmonary vasculature is unremarkable. Media stinum is midline. No lobar consolidation or evidence of pneumothorax. S shaped curvature of the thoracic spine. IMPRESSION: No active cardiopulmonary abnormalities are demonstrated.
[2019-01-07 17:58] LABS: INR-International Normal Ratio 1.1; Prothrombin Time 14.7 SEC (12.0-14.7)
[2019-01-07 17:59] LABS: PTT 30.2 SEC (22.9-36.1)
[2019-01-07 18:02] LABS: BHCG - Serum Negative (NEGATIVE); Pregs Control Background? CLEAR/WHITE (CLR/WHITE); Pregs Control Bar Appear? YES (CONTROL BAR)
[2019-01-07 18:07] LABS: D-Dimer Test 5.99 *mcg/mL (0.27-0.43)
[2019-01-07 18:12] LABS: ALT (SGPT) 10 U/L (8-55); AST (SGOT) 14 U/L (5-34); Albumin 4.4 g/dL (3.5-5.0); Alkaline Phosphatase 71 U/L (40-110); Anion Gap 13 mmol/L (10-20); BUN (Urea Nitrogen) 10 mg/dL (7.0-18.7); Bilirubin, Total 0.5 mg/dL (0.2-1.2); CK (CPK) 135 U/L (29-168); Calc. Creatinine Clearance 0 mL/min (70-130); Calcium 9.2 mg/dL (7.8-10.44); Carbon Dioxide 21 mmol/L (22-29); Chloride 106 mmol/L (98-107); Estimated GFR-MDRD Greater than 90; Globulin 3.5 g/dL (2.4-3.5); Glucose 82 mg/dL (70-105); Lipase 17 U/L (8-78); Potassium 3.9 mmol/L (3.5-5.1); Protein, Total 7.9 g/dL (6.0-8.3); Sodium 136 mmol/L (136-145)
[2019-01-07] MEDS ORDERED: Ondansetron PF 4 MG/2 ML Vial ONE (20:20)
[2019-01-07] MEDS ORDERED: Morphine 4 MG/ML VIAL ONE (20:20)
[2019-01-07] MEDS ORDERED: diphenhydrAMINE 50 MG/ML VIAL ONE (20:44)
[2019-01-07] MEDS ORDERED: Dexamethasone 10 MG/ML VIAL ONE (20:44)
--- NOTE | 2019-01-07 20:54 | CT ---
CT arteriogram chest with IV contrast and 3-D imaging HISTORY: Chest pain. Dyspnea. FINDINGS: There is good contrast opacification of the pulmonary arteries and thoracic aorta. Bovine o rigin of the great vessels at the aortic arch. Mild atelectasis at the right posterolateral lung base. No pleural fluid, pneumothorax, or mediastinal adenopathy. Residual thymus at the upper anterio r mediastinum. IMPRESSION: No CT evidence of pulmonary embolus.
--- NOTE | 2019-01-07 20:57 | CT ---
CT abdomen and pelvis with IV contrast HISTORY: Abdomen pain. Hematemesis. FINDINGS: Mild atelectasis at the right posterolateral lung base. Solid organs are intact. No free ai r or free fluid. Nonspecific lymph nodes within the retroperitoneum. Urinary bladder is unremarkable. Appendix is not inflamed. No evidence of bowel obstruction or inflammation. Small hiatal hernia. IMPRESSION: No significant abnormalities are demonstrated to explain the patient's symptoms.
== END 2019-01-07 22:04 | disposition home or self-care (01) ==
LOC: ERS 16:47
DX: K20.9 Esophagitis, unspecified (principal); N39.0 Urinary tract infection, site not specified; R79.1 Abnormal coagulation profile
CPT/HCPCS: 36415; 71045; 71275; 74177; 80053; 81003; 81015; 82550; 83690; 83880; 84484; 84703; 85025; 85379; 85610; 85730; 87086; 93005; J1100; J1200; J2270; J2405; Q9967

== ENCOUNTER 2021-12-31 23:13 | Emergency (ER) | payer MEDICAID, OTHER ==
[2022-01-01 00:17] LABS: #Eosinphils 0.4 thou/uL (0.0-0.7); #Lymphocytes 3.6 thou/uL (1.20-3.40); #Monocytes 0.5 thou/uL (0.11-0.59); #Neutrophils 4.1 thou/uL (1.40-6.50); %Basophils 0.3 % (0.0-1.0); %Eosinophils 4.4 % (0.0-10.0); %Lymphocytes 41.4 % (21.0-51.0); %Monocytes 6.2 % (0.0-10.0); %Neutrophils 47.6 % (42.0-75.0); Hemoglobin 10.3 g/dL (12.0-16.0); Mean Corpuscular HGB CONC 30.6 g/dL (32.0-36.0); Mean Corpuscular Hemoglobin 23.1 pg (27.0-31.0); Mean Corpuscular Volume 75.7 fl (78.0-98.0); Mean Platelet Volume 9.3 fL (7.4-10.4); Platelet Count 316 thou/uL (130-400); RBC Distribution Width 14.9 % (11.5-14.5); Red Blood Cell (RBC) Count 4.43 mill/uL (4.20-5.40); White Blood Cell (WBC) Count 8.6 thou/uL (4.8-10.8)
[2022-01-01 00:40] LABS: ALT (SGPT) 11 U/L (8-55); AST (SGOT) 12 U/L (5-34); Albumin 3.9 g/dL (3.5-5.0); Alkaline Phosphatase 66 U/L (40-110); Anion Gap 15 mmol/L (10-20); BUN (Urea Nitrogen) 13 mg/dL (7.0-18.7); Bilirubin, Total 0.3 mg/dL (0.2-1.2); Calc. Creatinine Clearance 0 mL/min (70-130); Calcium 9.1 mg/dL (7.8-10.44); Carbon Dioxide 20 mmol/L (22-29); Chloride 108 mmol/L (98-107); Estimated GFR 108; Globulin 2.9 g/dL (2.4-3.5); Glucose 89 mg/dL (70-105); Protein, Total 6.8 g/dL (6.0-8.3); Sodium 139 mmol/L (136-145)
[2022-01-01] MEDS ORDERED: diphenhydrAMINE 50 MG/ML VIAL ONE (01:54)
[2022-01-01] MEDS ORDERED: methylPREDNISolone Sod Succ 40 MG VIAL ONE (01:54)
[2022-01-01] MEDS ORDERED: Famotidine/PF 20 mg/2ml Vial ONE (01:54)
[2022-01-01] MEDS ORDERED: Iopamidol-370 76% 500 ML 1 ML ONE (08:17)
== END 2022-01-01 02:02 | disposition home or self-care (01) ==
LOC: ERS 23:13
DX: R07.9 Chest pain, unspecified (principal)
CPT/HCPCS: 36415; 71045; 71275; 80053; 84484; 85025; 93005; 96374; 96375; J1200; J2920; Q9967; S0028

== ENCOUNTER 2022-12-05 14:47 | Outpatient (CLI) | payer OTHER | END 2022-12-05 14:48 | disposition home or self-care (01) | LOC: DTY/OP 14:47 | PROVIDERS: ATTEND Surgery | DX: E66.01 Morbid (severe) obesity due to excess calories (principal) | CPT/HCPCS: 97802 ==

== ENCOUNTER 2022-12-14 08:32 | Outpatient (CLI) | payer OTHER ==
[2022-12-14 09:52] LABS: #Basophils 0.1 10x3/uL (0.0-0.2); #Eosinphils 0.3 10x3/uL (0.0-0.5); #Monocytes 0.6 10x3/uL (0.0-1.1); #Neutrophils 3.4 10x3/uL (1.5-8.4); %Basophils 0.9 % (0.0-2.0); %Lymphocytes 37.6 % (18.0-47.0); %Monocytes 8.7 % (0.0-10.0); %Neutrophils 48.5 % (40.0-75.0); Hematocrit 38.6 % (34.9-44.5); Hemoglobin 11.7 g/dL (12.0-15.5); Mean Corpuscular HGB CONC 30.3 g/dL (32.0-36.0); Mean Corpuscular Hemoglobin 24.2 pg (27.0-33.0); Mean Corpuscular Volume 79.9 fl (81.6-98.3); Mean Platelet Volume 10.9 fl (7.4-10.4); Platelet Count 365 10x3/uL (150-450); RBC Distribution Width 14.8 % (11.5-14.5); Red Blood Cell (RBC) Count 4.83 10x6/uL (3.90-5.03); White Blood Cell (WBC) Count 6.9 10x3/uL (3.5-10.5)
[2022-12-14 10:20] LABS: BHCG - Serum Negative (NEGATIVE)
[2022-12-14 10:21] LABS: Pregs Control Background? CLEAR/WHITE (CLR/WHITE); Pregs Control Bar Appear? YES (CONTROL BAR)
[2022-12-14 10:24] LABS: ALT (SGPT) 8 U/L (8-55); AST (SGOT) 12 U/L (5-34); Albumin 4.1 g/dL (3.5-5.0); Alkaline Phosphatase 53 U/L (40-110); Anion Gap 15 mmol/L (10-20); BUN (Urea Nitrogen) 14 mg/dL (7.0-18.7); Bilirubin, Direct 0.1 mg/dL (0.1-0.3); Bilirubin, Total 0.4 mg/dL (0.2-1.2); Calc. Creatinine Clearance 0 mL/min (70-130); Calcium 9.3 mg/dL (7.8-10.44); Carbon Dioxide 20 mmol/L (22-29); Chloride 106 mmol/L (98-107); Estimated GFR 110; Globulin 3.1 g/dL (2.4-3.5); Glucose 96 mg/dL (70-105); Potassium 4.2 mmol/L (3.5-5.1); Protein, Total 7.2 g/dL (6.0-8.3); Sodium 137 mmol/L (136-145)
== END 2022-12-14 08:33 | disposition home or self-care (01) ==
LOC: LABBT 08:32
PROVIDERS: ATTEND Surgery
DX: Z01.818 Encounter for other preprocedural examination (principal); E66.01 Morbid (severe) obesity due to excess calories
CPT/HCPCS: 80053; 80076; 84703; 85025; 93005; 93010

== ENCOUNTER 2022-12-20 06:01 | Inpatient (IN) | payer OTHER ==
[2022-12-20] MEDS ORDERED: KETAMINE 100 MG/ML (5ML VIAL) ONE (06:23)
[2022-12-20] MEDS ORDERED: SUGAMMADEX SODIUM 200 MG/2 ML VIAL ONE ×2 (06:24→07:34)
[2022-12-20] MEDS ORDERED: fentaNYL PF 100 MCG/2 ML SYRINGE ONE ×3 (06:24→11:15)
[2022-12-20] MEDS ORDERED: Dexmedetomidine 200 MCG/2 ML VIAL ONE (06:24)
[2022-12-20] MEDS ORDERED: Heparin 5,000 UNITS/ML VIAL ONE (06:33)
[2022-12-20] MEDS ORDERED: Bupivacaine 0.25% HCL 30 ML VIAL ONE (06:33)
[2022-12-20] MEDS ORDERED: EPINEPHrine 1 MG/ML AMP ONE (06:33)
[2022-12-20] MEDS ORDERED: Propofol 500 MG/50 ML VIAL ONE (06:34)
[2022-12-20] MEDS ORDERED: Albuterol HFA (OR) 200 PUFF INH ONE ×2 (06:34→07:35)
[2022-12-20] MEDS ORDERED: Sevoflurane 250 ML INH ANEST BOTTLE ONE (06:34)
[2022-12-20] MEDS ORDERED: Sodium Chloride 0.9% 100 ML ONE (07:28)
[2022-12-20] MEDS ORDERED: CEFAZOLIN 2 GM VIAL ONE (07:28)
[2022-12-20] MEDS ORDERED: Ondansetron PF 4 MG/2 ML Vial ONE ×3 (07:35→09:59)
[2022-12-20] MEDS ORDERED: Lidocaine 1% PF 5 ML VIAL ONE (07:35)
[2022-12-20] MEDS ORDERED: Esmolol 100 MG/10 ML VIAL ONE (07:35)
[2022-12-20] MEDS ORDERED: Rocuronium Bromide 10 MG/ML (10ML VIAL) ONE (07:35)
[2022-12-20] MEDS ORDERED: PHENYLEPHRINE-NS 100 MCG/ML 10 ML SYRINGE ONE (07:35)
[2022-12-20] MEDS ORDERED: Dexamethasone 20 MG/5 ML VIAL ONE (07:35)
[2022-12-20] MEDS ORDERED: PROPOFOL 200 MG/20 ML VIAL ONE (07:35)
[2022-12-20] MEDS ORDERED: Ketorolac Tromethamine 30 MG/ML VIAL ONE (07:35)
[2022-12-20] MEDS ORDERED: Promethazine HCl 25 MG/ML VIAL IM PRN ×2 (08:38→08:53)
[2022-12-20] MEDS ORDERED: Ondansetron HCl/PF 4 MG/2 ML Vial IVP PRN (08:38)
[2022-12-20] MEDS ORDERED: Dextrose 50% Abboject 50 ML SYRINGE SLOW IVP PRN (08:53)
[2022-12-20] MEDS ORDERED: Hydrocodone-Acetamin 15 ML UDCUP PO PRN (08:53)
[2022-12-20] MEDS ORDERED: Glucagon 1 MG/ML KIT IM PRN (08:53)
[2022-12-20] MEDS ORDERED: hydrALAZINE 20 MG/ML VIAL SLOW IVP PRN (08:53)
[2022-12-20] MEDS ORDERED: diphenhydrAMINE 50 MG/ML VIAL IVP PRN (08:53)
[2022-12-20] MEDS ORDERED: Ipratropium/Albuterol 3 ML NEB NEB PRN (08:53)
[2022-12-20] MEDS ORDERED: Dextrose 5% in Water 1,000 ML IV PRN (08:53)
[2022-12-20] MEDS ORDERED: Pantoprazole 40 MG VIAL IVP SCH (09:00)
[2022-12-20] MEDS ORDERED: D5 1/2 NS w/20 mEq KCL 1,000 ML ONE (09:40)
[2022-12-20] MEDS ORDERED: Dexamethasone 4 mg/ml Vial ONE (09:59)
[2022-12-20] MEDS ORDERED: fentaNYL 50 mcg/mL 1 mL Vial ONE (10:25)
[2022-12-20] MEDS: D5 1/2 NS w/20 mEq KCL 1,000 ML IV SCH ×2 (11:10→18:12)
[2022-12-20] MEDS ORDERED: Morphine 4 MG/ML VIAL ONE (12:14)
[2022-12-20 13:09] VITALS: BMI 61.6
[2022-12-20] MEDS: CEFAZOLIN 2 GM in Sodium Chloride 0.9% 100 ML IVPB SCH ×2 (13:18→22:55)
[2022-12-20] MEDS: Ketorolac Tromethamine 30 MG/ML VIAL IVP SCH ×3 (13:18→22:56)
[2022-12-20] MEDS: Ondansetron PF 4 MG/2 ML Vial IVP PRN ×2 (14:36→22:55)
[2022-12-20] MEDS: Morphine 4 MG/ML VIAL SLOW IVP PRN ×2 (15:29→22:55)
[2022-12-20] MEDS: Morphine 2 MG/ML VIAL SLOW IVP PRN (19:56)
[2022-12-20] MEDS: Pantoprazole 40 MG VIAL IVP SCH (19:56)
[2022-12-20 23:29] LABS: #Monocytes 0.5 thou/uL (0.11-0.59); #Neutrophils 12.3 thou/uL (1.40-6.50); %Basophils 0.1 % (0.0-1.0); %Lymphocytes 7.1 % (21.0-51.0); %Monocytes 3.9 % (0.0-10.0); %Neutrophils 88.6 % (42.0-75.0); Hematocrit 36.7 % (36.0-47.0); Hemoglobin 11.5 g/dL (12.0-16.0); Mean Corpuscular HGB CONC 31.3 g/dL (32.0-36.0); Mean Corpuscular Hemoglobin 25.2 pg (27.0-31.0); Mean Corpuscular Volume 80.5 fl (78.0-98.0); Mean Platelet Volume 10.9 fL (7.4-10.4); Platelet Count 296 10x3/uL (130-400); RBC Distribution Width 14.5 % (11.5-14.5); Red Blood Cell (RBC) Count 4.56 mill/uL (4.20-5.40); White Blood Cell (WBC) Count 13.9 10x3/uL (4.8-10.8)
[2022-12-20] MEDS ORDERED: methylPREDNISolone Sod Succ 40 MG VIAL IVP SCH (23:30)
[2022-12-20] MEDS ORDERED: Famotidine/PF 20 mg/2ml Vial SLOW IVP SCH (23:30)
[2022-12-20] MEDS ORDERED: diphenhydrAMINE 50 MG/ML VIAL IVP SCH (23:30)
[2022-12-21 00:01] LABS: Anion Gap 16 mmol/L (10-20); BUN (Urea Nitrogen) 7 mg/dL (7.0-18.7); Calc. Creatinine Clearance 255 mL/min (70-130); Calcium 8.9 mg/dL (7.8-10.44); Carbon Dioxide 13 mmol/L (22-29); Chloride 108 mmol/L (98-107); Estimated GFR 118; Glucose 129 mg/dL (70-105); Lipase 21 U/L (8-78); Magnesium 1.8 mg/dL (1.6-2.6); Sodium 132 mmol/L (136-145)
[2022-12-21 00:02] LABS: Troponin I Less than 0.010 ng/mL (< 0.028)
[2022-12-21 00:51] LABS: ALT (SGPT) 20 U/L (8-55); AST (SGOT) 27 U/L (5-34); Alkaline Phosphatase 60 U/L (40-110); Bilirubin, Direct 0.1 mg/dL (0.1-0.3); Bilirubin, Total 0.4 mg/dL (0.2-1.2); Protein, Total 7.4 g/dL (6.0-8.3)
[2022-12-21 04:22] LABS: Actual Bicarbonate (HCO3v) 21.9 mEq/L (22-28); Base Excess -1.7 mEq/L (-2.0 to +3.0); Calcium, Ionized (venous) 1.11 mmol/L (1.16-1.32); Chloride (VBG) 107 mmol/L (98-106); Hematocrit-VBG 36 % (36.0-47.0); Hemoglobin (Hb) 12.3 g/dL (11.7-15.5); Potassium (VBG) 4.54 mmol/L (3.70-5.30); Sodium 137 mmol/L (133-146); pH (venous) 7.434 (7.32-7.43)
[2022-12-21 04:43] LABS: #Monocytes 0.2 thou/uL (0.11-0.59); #Neutrophils 11.9 thou/uL (1.40-6.50); %Basophils 0.1 % (0.0-1.0); %Lymphocytes 5.6 % (21.0-51.0); %Monocytes 1.6 % (0.0-10.0); %Neutrophils 92.2 % (42.0-75.0); Hematocrit 34.9 % (36.0-47.0); Hemoglobin 10.8 g/dL (12.0-16.0); Mean Corpuscular HGB CONC 30.9 g/dL (32.0-36.0); Mean Corpuscular Volume 80.8 fl (78.0-98.0); Mean Platelet Volume 10.9 fL (7.4-10.4); Platelet Count 290 10x3/uL (130-400); RBC Distribution Width 14.5 % (11.5-14.5); Red Blood Cell (RBC) Count 4.32 mill/uL (4.20-5.40); White Blood Cell (WBC) Count 12.9 10x3/uL (4.8-10.8)
[2022-12-21 04:57] LABS: Lactic Acid 0.8 mmol/L (0.5-2.2)
[2022-12-21 05:08] LABS: Anion Gap 14 mmol/L (10-20); BUN (Urea Nitrogen) 7 mg/dL (7.0-18.7); Calc. Creatinine Clearance 245 mL/min (70-130); Calcium 8.9 mg/dL (7.8-10.44); Carbon Dioxide 18 mmol/L (22-29); Chloride 108 mmol/L (98-107); Estimated GFR 112; Glucose 139 mg/dL (70-105); Potassium 4.5 mmol/L (3.5-5.1); Sodium 135 mmol/L (136-145)
[2022-12-21] MEDS: Morphine 4 MG/ML VIAL SLOW IVP PRN (05:17)
[2022-12-21] MEDS: Ketorolac Tromethamine 30 MG/ML VIAL IVP SCH ×4 (05:17→23:02)
[2022-12-21] MEDS: D5 1/2 NS w/20 mEq KCL 1,000 ML IV SCH ×3 (05:25→17:08)
[2022-12-21] MEDS: Pantoprazole 40 MG VIAL IVP SCH ×2 (09:13→20:07)
[2022-12-21] MEDS: Lisinopril 2.5 MG TAB PO SCH (09:13)
[2022-12-21] MEDS ORDERED: Acetaminophen 325 MG TAB PO PRN (20:11)
[2022-12-21] MEDS: Morphine 2 MG/ML VIAL SLOW IVP PRN (23:08)
[2022-12-22] MEDS: D5 1/2 NS w/20 mEq KCL 1,000 ML IV SCH ×2 (02:29→09:00)
[2022-12-22] MEDS: Ketorolac Tromethamine 30 MG/ML VIAL IVP SCH ×2 (05:40→11:44)
[2022-12-22 08:11] LABS: #Monocytes 0.6 thou/uL (0.11-0.59); #Neutrophils 3.8 thou/uL (1.40-6.50); %Basophils 0.5 % (0.0-1.0); %Eosinophils 0.5 % (0.0-10.0); %Lymphocytes 41.2 % (21.0-51.0); %Monocytes 7.6 % (0.0-10.0); %Neutrophils 49.8 % (42.0-75.0); Hematocrit 37.5 % (36.0-47.0); Hemoglobin 11.4 g/dL (12.0-16.0); Mean Corpuscular HGB CONC 30.4 g/dL (32.0-36.0); Mean Corpuscular Volume 82.2 fl (78.0-98.0); Mean Platelet Volume 10.7 fL (7.4-10.4); Platelet Count 288 10x3/uL (130-400); RBC Distribution Width 14.9 % (11.5-14.5); Red Blood Cell (RBC) Count 4.56 mill/uL (4.20-5.40); White Blood Cell (WBC) Count 7.6 10x3/uL (4.8-10.8)
[2022-12-22] MEDS ORDERED: Hydrocodone-Acetamin 15 ML UDCUP PO PRN (08:14)
[2022-12-22] MEDS: Lisinopril 2.5 MG TAB PO SCH (08:50)
[2022-12-22] MEDS: Pantoprazole 40 MG VIAL IVP SCH (08:50)
[2022-12-22 11:59] VITALS: BP 149/87; TEMP 98.1
== END 2022-12-22 16:21 | disposition home or self-care (01) | DRG 621 ==
LOC: SDC 06:01 → SURG B 09:17
PROVIDERS: ADMIT Surgery; ATTEND Surgery
PROC: 0DB64Z3 Excision of Stomach, Percutaneous Endoscopic Approach, Vertical (ICD-10-PCS; principal; 2022-12-20)
PROC: 4A043R1 Measurement of Venous Saturation, Peripheral, Percutaneous Approach (ICD-10-PCS; 2022-12-21)
DX: E66.01 Morbid (severe) obesity due to excess calories (principal); Z68.44 Body mass index [BMI] 60.0-69.9, adult; Z91.041 Radiographic dye allergy status; I10 Essential (primary) hypertension; Z98.890 Other specified postprocedural states; Z79.899 Other long term (current) drug therapy; R07.89 Other chest pain; K21.9 Gastro-esophageal reflux disease without esophagitis; Z86.711 Personal history of pulmonary embolism; E78.00 Pure hypercholesterolemia, unspecified; Z82.49 Family history of ischemic heart disease and other diseases of the circulatory system
CPT/HCPCS: 36415; 71275; 80048; 80076; 82805; 83605; 83690; 83735; 84484; 85025; 87040; 88307; 88342; 93005; 93010; C9113; J0171; J1100; J1200; J1644; J1650; J1885; J2270; J2272; J2405; J2704; J2920; J3010; J3480; J3490; S0020; S0028

== ENCOUNTER 2023-01-10 20:41 | Inpatient (IN) | payer MEDICAID, OTHER ==
[2023-01-10 21:31] LABS: #Eosinphils 0.2 thou/uL (0.0-0.7); #Monocytes 0.5 thou/uL (0.11-0.59); #Neutrophils 2.8 thou/uL (1.40-6.50); %Basophils 0.6 % (0.0-1.0); %Eosinophils 3.5 % (0.0-10.0); %Lymphocytes 43.8 % (21.0-51.0); %Monocytes 7.7 % (0.0-10.0); %Neutrophils 44.2 % (42.0-75.0); Hematocrit 37.3 % (36.0-47.0); Hemoglobin 11.4 g/dL (12.0-16.0); Mean Corpuscular HGB CONC 30.6 g/dL (32.0-36.0); Mean Corpuscular Hemoglobin 25.4 pg (27.0-31.0); Mean Corpuscular Volume 83.1 fl (78.0-98.0); Mean Platelet Volume 11.7 fL (7.4-10.4); Platelet Count 285 10x3/uL (130-400); Red Blood Cell (RBC) Count 4.49 mill/uL (4.20-5.40); White Blood Cell (WBC) Count 6.3 10x3/uL (4.8-10.8)
[2023-01-10 21:47] LABS: INR-International Normal Ratio 1.1; PTT 27.8 sec (22.9-36.1); Prothrombin Time 14.4 sec (12.0-14.7)
[2023-01-10 21:50] LABS: D-Dimer Test 1.49 *mcg/mL (0.27-0.43)
[2023-01-10 21:55] LABS: ALT (SGPT) 19 U/L (8-55); AST (SGOT) 20 U/L (5-34); Albumin 4.2 g/dL (3.5-5.0); Alkaline Phosphatase 51 U/L (40-110); Anion Gap 12 mmol/L (10-20); BUN (Urea Nitrogen) 9 mg/dL (7.0-18.7); Bilirubin, Total 0.4 mg/dL (0.2-1.2); Calc. Creatinine Clearance 0 mL/min (70-130); Calcium 9.1 mg/dL (7.8-10.44); Carbon Dioxide 22 mmol/L (22-29); Chloride 110 mmol/L (98-107); Estimated GFR 96; Globulin 2.8 g/dL (2.4-3.5); Glucose 96 mg/dL (70-105); Potassium 3.9 mmol/L (3.5-5.1); Sodium 140 mmol/L (136-145)
[2023-01-10 21:58] LABS: Troponin I Less than 0.010 ng/mL (< 0.028)
[2023-01-10] MEDS ORDERED: methylPREDNISolone Sod Succ 40 MG VIAL ONE (23:22)
[2023-01-10] MEDS ORDERED: diphenhydrAMINE 50 MG/ML VIAL ONE (23:22)
[2023-01-10] MEDS ORDERED: Famotidine/PF 20 mg/2ml Vial ONE (23:23)
[2023-01-11] MEDS ORDERED: Heparin 25,000 units/D5W 500 ML ONE (02:57)
[2023-01-11] MEDS ORDERED: Heparin 25,000 units/D5W 500 ML IV SCH (03:00)
[2023-01-11] MEDS ORDERED: Heparin 10,000 UNITS/ 10 ML VIAL SLOW IVP SCH ×2 (03:00→03:45)
[2023-01-11] MEDS ORDERED: Ondansetron PF 4 MG/2 ML Vial IVP PRN (03:44)
[2023-01-11] MEDS ORDERED: Acetaminophen 325 MG TAB PO PRN (03:44)
[2023-01-11] MEDS ORDERED: Senokot S 8.6-50 MG TAB PO PRN (03:44)
[2023-01-11] MEDS ORDERED: Ondansetron ODT 4 MG TAB PO PRN (03:44)
[2023-01-11] MEDS ORDERED: Calcium Carbonate 500 MG ChewTAB PO PRN (03:44)
[2023-01-11] MEDS ORDERED: Heparin 25,000 units/D5W 500 ML IVPB SCH (03:45)
[2023-01-11] MEDS ORDERED: Labetalol HCl 100 MG/20 ML VIAL SLOW IVP PRN (03:47)
[2023-01-11 04:34] VITALS: BMI 51.0
[2023-01-11 04:39] LABS: Magnesium 1.9 mg/dL (1.6-2.6)
[2023-01-11] MEDS: Sodium Chloride 0.9% 1,000 ML IV SCH ×2 (05:00→18:19)
[2023-01-11 06:30] LABS: PTT 248.3 sec (22.9-36.1)
[2023-01-11] MEDS ORDERED: Acetaminophen 325 MG TAB ONE (08:43)
[2023-01-11] MEDS ORDERED: Famotidine 20 MG TAB ONE (08:44)
[2023-01-11] MEDS: Famotidine 20 MG TAB PO SCH ×2 (08:49→21:19)
[2023-01-11 08:50] LABS: Unfractionated Heparin 2.08 IU/mL
[2023-01-11 10:09] LABS: Unfractionated Heparin 0.79 IU/mL
[2023-01-11 10:11] LABS: PTT 115.4 sec (22.9-36.1)
[2023-01-11] MEDS ORDERED: Iopamidol-370 76% 500 ML MDV (1 ML CHARGE) ONE (11:04)
[2023-01-11] MEDS ORDERED: HYDROcodone/Acetaminophen 7.5/325 mg Tablet ONE (11:31)
[2023-01-11] MEDS: HYDROcodone/Acetaminophen 7.5/325 mg Tablet PO PRN ×2 (11:34→21:18)
[2023-01-11 17:56] LABS: INR-International Normal Ratio 1.3; Prothrombin Time 16.3 sec (12.0-14.7)
[2023-01-11 17:58] LABS: D-Dimer Test 0.86 *mcg/mL (0.27-0.43)
[2023-01-11 18:15] LABS: PTT Greater than 250.0 sec (22.9-36.1)
[2023-01-11 21:06] LABS: PTT 124.8 sec (22.9-36.1)
[2023-01-12 04:46] LABS: #Eosinphils 0.1 thou/uL (0.0-0.7); #Monocytes 0.6 thou/uL (0.11-0.59); #Neutrophils 3.2 thou/uL (1.40-6.50); %Basophils 0.5 % (0.0-1.0); %Eosinophils 1.4 % (0.0-10.0); %Lymphocytes 50.4 % (21.0-51.0); %Monocytes 7.1 % (0.0-10.0); %Neutrophils 40.6 % (42.0-75.0); Hematocrit 31.3 % (36.0-47.0); Hemoglobin 9.6 g/dL (12.0-16.0); Mean Corpuscular HGB CONC 30.7 g/dL (32.0-36.0); Mean Corpuscular Hemoglobin 25.8 pg (27.0-31.0); Mean Corpuscular Volume 84.1 fl (78.0-98.0); Mean Platelet Volume 11.5 fL (7.4-10.4); Platelet Count 234 10x3/uL (130-400); RBC Distribution Width 16.1 % (11.5-14.5); Red Blood Cell (RBC) Count 3.72 mill/uL (4.20-5.40); White Blood Cell (WBC) Count 7.8 10x3/uL (4.8-10.8)
[2023-01-12 05:16] LABS: Anion Gap 11 mmol/L (10-20); BUN (Urea Nitrogen) 9 mg/dL (7.0-18.7); Calc. Creatinine Clearance 246 mL/min (70-130); Calcium 7.8 mg/dL (7.8-10.44); Carbon Dioxide 21 mmol/L (22-29); Chloride 110 mmol/L (98-107); Estimated GFR 116; Glucose 100 mg/dL (70-105); Potassium 3.5 mmol/L (3.5-5.1); Sodium 138 mmol/L (136-145)
[2023-01-12 06:27] LABS: PTT 222.2 sec (22.9-36.1)
[2023-01-12 08:37] LABS: PTT Greater than 250.0 sec (22.9-36.1)
[2023-01-12] MEDS: HYDROcodone/Acetaminophen 7.5/325 mg Tablet PO PRN ×2 (09:06→21:05)
[2023-01-12] MEDS: Famotidine 20 MG TAB PO SCH ×2 (09:06→21:05)
[2023-01-12 14:46] LABS: Cardiolipin IgA Ab 2.7 APL-U/mL (<14 Negative); Cardiolipin IgG Ab 0.9 GPL-U/mL (<10 Negative); Cardiolipin IgM Ab 8.1 MPL-U/mL (<10 Negative); EliA APS New Method **** NEW METHOD ****
[2023-01-12] MEDS ORDERED: Apixaban 5 MG TAB PO SCH (17:15)
[2023-01-13 04:59] LABS: #Eosinphils 0.2 thou/uL (0.0-0.7); #Monocytes 0.5 thou/uL (0.11-0.59); %Basophils 0.7 % (0.0-1.0); %Eosinophils 3.1 % (0.0-10.0); %Lymphocytes 51.8 % (21.0-51.0); %Monocytes 8.6 % (0.0-10.0); %Neutrophils 35.6 % (42.0-75.0); Hematocrit 32.2 % (36.0-47.0); Hemoglobin 9.9 g/dL (12.0-16.0); Mean Corpuscular HGB CONC 30.7 g/dL (32.0-36.0); Mean Corpuscular Hemoglobin 25.8 pg (27.0-31.0); Mean Corpuscular Volume 84.1 fl (78.0-98.0); Mean Platelet Volume 11.6 fL (7.4-10.4); Platelet Count 242 10x3/uL (130-400); RBC Distribution Width 16.5 % (11.5-14.5); Red Blood Cell (RBC) Count 3.83 mill/uL (4.20-5.40); White Blood Cell (WBC) Count 5.6 10x3/uL (4.8-10.8)
[2023-01-13 05:02] LABS: INR-International Normal Ratio 1.3; PTT 32.2 sec (22.9-36.1); Prothrombin Time 16.5 sec (12.0-14.7)
[2023-01-13 05:29] LABS: Anion Gap 10 mmol/L (10-20); BUN (Urea Nitrogen) 6 mg/dL (7.0-18.7); Calc. Creatinine Clearance 239 mL/min (70-130); Calcium 8.5 mg/dL (7.8-10.44); Carbon Dioxide 23 mmol/L (22-29); Chloride 108 mmol/L (98-107); Estimated GFR 112; Glucose 83 mg/dL (70-105); Potassium 3.4 mmol/L (3.5-5.1); Sodium 138 mmol/L (136-145)
[2023-01-13 08:03] VITALS: TEMP 97.6
[2023-01-13] MEDS ORDERED: Potassium Chloride 20 MEQ TAB PO SCH (08:45)
[2023-01-13] MEDS ORDERED: Apixaban 5 MG TAB PO SCH (09:00)
[2023-01-13] MEDS: Famotidine 20 MG TAB PO SCH (09:42)
[2023-01-13 11:27] VITALS: BP 143/72
[2023-01-13] MEDS: HYDROcodone/Acetaminophen 7.5/325 mg Tablet PO PRN (11:28)
[2023-01-15 12:37] LABS: Protein C Activity 96 % (78-152)
[2023-01-15 14:00] LABS: HEX PHOS LA Tube 1 44.1 SEC; HEX PHOS LA Tube 2 41.8 SEC; Hexagonal Phospholipid Neut 2.3 SEC (0-8.0)
[2023-01-19] MEDS ORDERED: Apixaban 5 MG TAB PO SCH (21:00)
== END 2023-01-13 14:43 | disposition home or self-care (01) | DRG 176 ==
LOC: ERS 20:41 → ERHOLD 01-11 02:46 → 2NO 01-11 14:30
PROVIDERS: ADMIT Internal Medicine; ATTEND Hospitalist
DX: I26.99 Other pulmonary embolism without acute cor pulmonale (principal); Z68.43 Body mass index [BMI] 50.0-59.9, adult; E66.01 Morbid (severe) obesity due to excess calories; I10 Essential (primary) hypertension; K21.9 Gastro-esophageal reflux disease without esophagitis; I51.9 Heart disease, unspecified; Z91.041 Radiographic dye allergy status; Z79.899 Other long term (current) drug therapy; Z98.890 Other specified postprocedural states; F31.9 Bipolar disorder, unspecified; Z80.3 Family history of malignant neoplasm of breast; Z80.52 Family history of malignant neoplasm of bladder
CPT/HCPCS: 36415; 71275; 80048; 80053; 83090; 83735; 83880; 84484; 84702; 85025; 85300; 85303; 85305; 85307; 85379; 85520; 85598; 85610; 85730; 86147; 93005; 93306; 93970; 94760; 96365; 96375; 96376; J1200; J1644; J2920; J7050; Q9967; S0028